=== PATIENT | male | born 1980 | race Caucasian/White ===

== ENCOUNTER 2020-05-12 17:36 | Emergency (ER) | payer MEDICAID ==
[~2020-05-12] VITALS: Ht 185.4 cm; Wt 89.0 kg
[2020-05-12 22:05] LABS: CLARITY URINE CLEAR (CLEAR); COLOR URINE YELLOW (YELLOW); KETONES URINE NEGATIVE (NEGATIVE); LEUKOCYTE ESTERASE URINE NEGATIVE (NEGATIVE); NITRITE URINE NEGATIVE (NEGATIVE); OCCULT BLOOD URINE NEGATIVE (NEGATIVE); PROTEIN URINE NEGATIVE (NEGATIVE); SPECIFIC GRAVITY URINE 1.007 (1.005-1.030); UROBILINOGEN URINE 0.2 E.U./dL (0.2-1.0)
[2020-05-12 22:31] LABS: BASOPHILS % 0.9 % (0.0-2.0); EOSINOPHILS % 1.2 % (0.0-5.0); HEMATOCRIT. 41.8 % (42.0-52.0); HEMOGLOBIN. 14.1 g/dL (14.0-18.0); LYMPHOCYTES % 44.4 % (20.0-50.0); MEAN CORPUSCULAR HEMOGLOBIN 33.6 pg (28.0-32.0); MEAN CORPUSCULAR VOLUME 99.6 fL (80.0-94.0); MEAN PLATELET VOLUME 7.1 fl (7.4-10.4); MONOCYTES % 8.8 % (2.0-8.0); NEUTROPHILS % 44.7 % (40.0-76.0); PLATELET 283 x1000/uL (130-400); RED CELL DISTRIBUTION WIDTH 15.5 % (11.6-14.6)
[2020-05-12 22:35] LABS: CHLORIDE 111 mEq/L (98-107)
[2020-05-12 22:38] LABS: *AMPHETAMINES SCREEN URINE NEGATIVE (NEGATIVE); *BARBITURATES SCREEN URINE NEGATIVE (NEGATIVE); *BENZODIAZEPINES SCREEN URINE NEGATIVE (NEGATIVE); *COCAINE SCREEN URINE NEGATIVE (NEGATIVE); METHADONE URINE SCREEN NEGATIVE (NEGATIVE); OPIATES URINE SCREEN NEGATIVE (NEGATIVE)
[2020-05-12] MEDS ORDERED: SODIUM CHLORIDE 0.9% 1,000 ML IV ONE (22:38)
[2020-05-12 22:39] LABS: CANNABINOID URINE SCREEN PRESUMTIVE POSITIVE (NEGATIVE); PHENCYCLIDINE URINE SCREEN NEGATIVE (NEGATIVE)
[2020-05-12 22:41] LABS: ETHANOL BLOOD 292 mg/dL
[2020-05-12 22:44] LABS: CREATINE KINASE 71 IU/L (39-308)
[2020-05-12] MEDS ORDERED: FOLIC ACID 1 MG, THIAMINE HCL 100 MG, MVI, ADULT NO.1 10 ML in DEXTROSE 5% WATER 1,000 ML IV ONE ×4 (22:45)
[2020-05-12] MEDS ORDERED: LORAZEPAM 2MG/ML CPJ IV ONE (22:45)
[2020-05-12 22:48] LABS: VALPROIC ACID < 3.0 ug/mL (50-100)
[2020-05-13] MEDS ORDERED: LORAZEPAM 1MG TABLET PO ONE (04:45)
[2020-05-13] MEDS ORDERED: IBUPROFEN 600MG TABLET PO ONE (04:45)
[2020-05-13 06:22] VITALS: BP 110/78
== END 2020-05-13 06:00 | disposition home or self-care (01) ==
LOC: ER 17:36
DX: F10.239 Alcohol dependence with withdrawal, unspecified (principal); F99 Mental disorder, not otherwise specified; Y90.8 Blood alcohol level of 240 mg/100 ml or more; Z85.47 Personal history of malignant neoplasm of testis; Z98.1 Arthrodesis status
CPT/HCPCS: 36415; 71045; 80053; 80165; 80185; 80305; 80320; 81003; 82550; 83690; 84443; 85025; 96361; 96365; 96366; 96375; 99285; J2060; J3411; J3490; J7030; J7070; G0480

== ENCOUNTER 2020-09-21 15:23 | Emergency (ER) | payer MEDICAID, OTHER ==
[~2020-09-21] VITALS: Ht 177.8 cm; Wt 81.0 kg
[2020-09-21] MEDS ORDERED: LORAZEPAM 2MG/ML CPJ IV ONE (16:00)
[2020-09-21] MEDS ORDERED: SODIUM CHLORIDE 0.9% 1,000 ML IV ONE (16:00)
[2020-09-21 16:25] LABS: BASOPHILS % 1.6 % (0.0-2.0); EOSINOPHILS % 0.3 % (0.0-5.0); HEMATOCRIT. 47.2 % (42.0-52.0); HEMOGLOBIN. 16.1 g/dL (14.0-18.0); LYMPHOCYTES % 29.5 % (20.0-50.0); MEAN CORPUSCULAR HEMOGLOBIN 34.7 pg (28.0-32.0); MEAN CORPUSCULAR VOLUME 101.4 fL (80.0-94.0); MEAN PLATELET VOLUME 8.3 fl (7.4-10.4); MONOCYTES % 8.1 % (2.0-8.0); NEUTROPHILS % 60.5 % (40.0-76.0); PLATELET 206 x1000/uL (130-400); RED BLOOD CELL COUNT 4.66 mill/uL (4.7-6.1); RED CELL DISTRIBUTION WIDTH 14.5 % (11.6-14.6)
[2020-09-21 16:33] LABS: INR 0.9
[2020-09-21 16:34] LABS: CHLORIDE 94 mEq/L (98-107)
[2020-09-21 16:54] LABS: ETHANOL BLOOD 333 mg/dL
[2020-09-21] MEDS ORDERED: ONDANSETRON HCL 4MG/2ML INJ IV ONE (22:45)
[2020-09-22] MEDS ORDERED: CHLORDIAZEPOXIDE 25MG CAPSULE PO ONE (00:30)
[2020-09-22 04:41] VITALS: BP 130/77
== END 2020-09-22 07:14 | disposition home or self-care (01) ==
LOC: ER 15:45
DX: F10.129 Alcohol abuse with intoxication, unspecified (principal); Y90.8 Blood alcohol level of 240 mg/100 ml or more
CPT/HCPCS: 36415; 71045; 80053; 80320; 85025; 85610; 93005; 96361; 96374; 96375; 99285; J2060; J2405; J7030; G0480